=== PATIENT | female | born 1985 | race Caucasian/White ===

== ENCOUNTER 2020-10-26 09:03 | Emergency (ER) | payer SELFPAY ==
[2020-10-26 09:20] VITALS: BP 120/47; PULSE 69; RESP 18; TEMP 36.5; O2SAT 99
--- NOTE | 2020-10-26 09:59 | ED.SKABFB ---
HPI - Skin/Abscess/Foreign Bdy General Chief complaint: Skin/Abscess/Foreign Body Stated complaint: sore on abdomen Time Seen by Provider: 10/26/20 09:25 Source: patient Mode of arrival: ambulatory Limitations: no limitations History of Present Illness HPI narrative: Patient comes in with draining area on abdomen. This has gone on for many days with associated induration around the wound, which is about the size of a quarter. She denies fever or chills. Discomfort from wound has been moderated a dull pain, ongoing for the past 3 days, and seems to be getting worse. Antibiotic ointment used at home has not helped. No modifying factors. No other associated signs or symptoms. complaint: abscess/boil Onset (ago): hour(s) Severity: moderate Quality: aching Pain Consistency: constant Relieving factors: none Exacerbating factors: none Context: none Associated symptoms: denies other symptoms Treatments prior to arrival: attempted to drain pus at home Related Data Home Medications Medication Instructions Recorded Confirmed montelukast [Singulair] 10 mg PO DAILY 10/26/20 10/26/20 Allergies Allergy/AdvReac Type Severity Reaction Status Date / Time No Known Allergies Allergy Verified 10/26/20 09:19 Review of Systems Constitutional: Constitutional: Reports no additional constitutional complaints Eyes: Eyes: Reports no additional eye complaints ENT: Reports system reviewed and no additional complaints, except as documented Cardiovascular: Cardiovascular: Reports no additional cardiovascular complaints Respiratory: Respiratory: Reports no additional respiratory complaints Gastrointestinal: Gastrointestinal: Reports no additional gastrointestinal complaints Genitourinary: Genitourinary: Reports no additional female genitourinary complaints Musculoskeletal: Musculoskeletal: Reports no additional musculoskeletal complaints Integumentary/Breasts: Comments: draining wound to abdomen Neurologic: Reports system reviewed and no additional complaints, except as documented Psychiatric: Psychiatric: Reports no additional psychiatric complaints Endocrine: Endocrine: Reports no additional endocrine complaints Hematologic/Lymphatic: Hematologic/Lymphatic: Reports no additional hematologic/lymphatic complaints Allergic/Immunologic: Allergic/Immunologic: Reports no additional allergic/immunologic complaints PMFSH Past Medical History Medical History (Updated 10/26/20 @ 12:54 by Manny Johnson MD) Abscess Surgical History Surgical History (Updated 10/26/20 @ 12:54 by Manny Johnson MD) deliv NOS-unsp Family History Family History (Updated 10/26/20 @ 12:54 by Manny Johnson MD) Father Diabetes mellitus Social History Social History (Updated 10/26/20 @ 12:55 by Manny Johnson MD) Smoking packs per day: 0.5 Smoking cigarettes per day: 10.0 Tobacco type: cigarettes Alcohol intake: current Alcohol use details: rare minimal alcohol use Exam Const: General: no acute distress and alert Orientation/consciousness: patient oriented x3 HENMT: Head: normal to inspection Ears: external ears normal and TM's normal bilaterally Mouth: Yes Normal oral and palatal mucosa present Throat: posterior oropharynx normal Eyes: Conjunctivae: conjunctivae normal Neck: Neck: normal visual inspection Chest: Chest palpation & inspection: normal inspection of the chest Resp: Effort & Inspection: normal respiratory effort Auscultation: clear to auscultation bilaterally Cardio: Rate: regular rate Rhythm: regular rhythm GI: GI Palp: Yes Soft to palpation (nontender) Skin: General skin exam: normal color Other: Small wound to abdomen was washed and then a small amount of necrotic material was removed from the center. It does not appear that this wound needs to be incised and drained, She has cellulitis around the wound and an indurated area, but nothing that appears fluctuant. Neuro: Genera
[2020-10-26] MEDS: cefTRIAXone 1 GM VIAL IM (11:02)
[2020-10-26 11:20] VITALS: BP 113/72; PULSE 72; RESP 16; O2SAT 99
== END 2020-10-26 11:21 | disposition home or self-care (01) ==
PROVIDERS: Emergency Provider Emergency Medicine; PCP Family Medicine
DX: L03.90 Cellulitis, unspecified (principal)
CPT/HCPCS: 96372; 99283; J0696